=== PATIENT | female | born 1960 | race Caucasian/White ===

== ENCOUNTER 2018-12-08 03:22 | Emergency (ER) | payer SELFPAY ==
[~2018-12-08] VITALS: Ht 162.6 cm; Wt 48.0 kg
[2018-12-08] MEDS ORDERED: ACETAMINOPHEN WITH CODEINE 300/30MG TABLET PO ONE (06:15)
[2018-12-08 07:48] VITALS: BP 153/79
== END 2018-12-08 07:50 | disposition home or self-care (01) ==
LOC: ER 03:22
DX: M79.18 Myalgia, other site (principal); Y04.0XXA Assault by unarmed brawl or fight, initial encounter
CPT/HCPCS: 70486; 73610; 99284